=== PATIENT | male | born 1945 | race Caucasian/White ===

== ENCOUNTER 2019-11-16 19:41 | Emergency (ER) | payer OTHER ==
[~2019-11-16] VITALS: Ht 170.2 cm; Wt 78.5 kg
[2019-11-16 19:44] VITALS: Ht 170.2 cm; Wt 78.5 kg
[2019-11-16 20:21] LABS: BASOPHIL % 0.6 % (0-2); PLATELET COUNT 217 x10^3mcL (130-400); RED CELL DISTRIBUTION WIDTH 15.3 % (11.5-14.5)
[2019-11-16 20:36] LABS: CALCIUM 8.9 mg/dL (8.5-10.1); CHLORIDE SERUM 109 mmol/L (98-107); GLUCOSE SERUM 91 mg/dL (74-106); POTASSIUM SERUM 3.5 mmol/L (3.5-5.1); SODIUM SERUM 135 mmol/L (136-145)
[2019-11-16 20:41] LABS: ALBUMIN 3.8 g/dL (3.4-5.0); ALKALINE PHOSPHATASE 70 U/L (46-116); ALT/SGPT 43 U/L (16-63); AST/SGOT 22 U/L (15-37); BILIRUBIN TOTAL 0.4 mg/dL (0.20-1.00); CHOLESTEROL 156 mg/dL (<200); CHOLESTEROL/HDL RATIO 2.9; HDL CHOLESTEROL 54 mg/dL (40-60); LIPASE 206 IU/L (73-393); TOTAL PROTEIN, SERUM 7.1 g/dL (6.4-8.2); TRIGLYCERIDES 117 mg/dL (<150)
[2019-11-16 20:45] LABS: T3 TOTAL 0.74 ng/mL
[2019-11-16 21:02] LABS: FREE T4 0.96 ng/dL (0.76-1.46); FREE THYROXINE INDEX 2.1 ug/dL (1.4-4.5); T4(THYROXINE) 6.1 ug/dL (4.7-13.3)
[2019-11-16 22:59] LABS: microscopic required? NO
[2019-11-16 23:10] LABS: urine erythrocyte NEGATIVE (NEGATIVE)
[2019-11-16 23:15] VITALS: BP 142/75
[2019-11-16 23:25] LABS: AMPHETAMINE QUAL UR NONE DETECTED (See below)
== END 2019-11-16 23:10 | disposition short-term general hospital (02) ==
LOC: ED 19:41
PROVIDERS: Specialist
DX: I62.9 Nontraumatic intracranial hemorrhage, unspecified (principal); I11.0 Hypertensive heart disease with heart failure; I50.9 Heart failure, unspecified; E11.9 Type 2 diabetes mellitus without complications; E78.00 Pure hypercholesterolemia, unspecified
CPT/HCPCS: 83880; 84439; J7030; Q0092